=== PATIENT | female | born 1935 | race Caucasian/White ===

== ENCOUNTER 2019-03-31 06:55 | Day surgery (SDC) | payer OTHER ==
[~2019-03-31 06:55] MED LIST: ATACAND32 MG; CARDIZEM LA120 MG; COLACE100 MG PO; TRAM1TAB98 PO; VYTORIN 10/20 T1 TAB
== END 2019-03-31 10:54 | disposition home or self-care (01) ==
LOC: AMB-ENDOS 06:55
DX: K57.30 Diverticulosis of large intestine without perforation or abscess without bleeding (principal)